=== PATIENT | male | born 1965 | race Caucasian/White ===

== ENCOUNTER 2019-02-26 07:08 | Emergency (ER) | payer OTHER ==
[~2019-02-26] VITALS: Ht 182.9 cm; Wt 90.7 kg
[2019-02-26] MEDS ORDERED: DICLOFENAC SODI75 MG PO (07:20)
[2019-02-26] MEDS ORDERED: LISINOPRIL20 MG PO (07:20)
[2019-02-26] MEDS ORDERED: PROZAC20 MG PO (07:21)
[2019-02-26] MEDS ORDERED: ZYRTEC10 MG PO (07:21)
[2019-02-26] MEDS ORDERED: VISTARIL25 MG PO (07:21)
[2019-02-26] MEDS ORDERED: HYDROXYZINE HCL50 MG PO (08:10)
--- NOTE | 2019-02-26 13:36 | EKG ---
[facility] [address] [facility] [place], [place] [address] Signed Sinus rhythm with 1st degree AV block Cannot rule out Anterior infarct , age undetermined Abnormal ECG No previous ECGs available Confirmed by DANITZA FAIRBANKS MD ([id number]) on 02/26/2019 1:36:36 PM Electronically Signed By: DANITZA FAIRBANKS MD 02/26/19 1336 PATIENT NAME: EVON VIEYRA Electrocardiogram DATE OF : 65 PHYSICIAN: DANITZA FAIRBANKS MD REPORT #: [id number] REPORT IS CONFIDENTIAL AND NOT TO BE RELEASED WITHOUT AUTHORIZATION
== END 2019-02-26 08:45 | disposition home or self-care (01) ==
LOC: ED 07:08
DX: F41.9 Anxiety disorder, unspecified (principal); F43.0 Acute stress reaction; Z79.899 Other long term (current) drug therapy
CPT/HCPCS: 71045; 80053; 83880; 84484; 85025; 93005; 93010; 96374; 99285-25; G0480; J2060

== ENCOUNTER 2025-04-18 15:32 | Emergency (ER) | payer OTHER ==
[~2025-04-18] VITALS: Ht 182.9 cm; Wt 92.0 kg
[~2025-04-18 15:32] MED LIST: DICLOFENAC SODI75 MG PO; HYDROXYZINE HCL50 MG PO; LISINOPRIL20 MG PO; PROZAC20 MG PO; VISTARIL25 MG PO; ZYRTEC10 MG PO
[2025-04-18] MEDS ORDERED: NEURONTIN100 MG PO (16:13)
[2025-04-18 16:17] LABS: BASOPHILS 0.3 % (0.2-1.2); EOSINOPHILS 0.4 % (0.8-7.0); LYMPHOCYTES 8.4 % (21.8-53.1); MCH 30.6 PG (25.7-32.2); MCHC 34.1 g/dL (32.3-36.5); MCV 89.7 fL (79.0-92.2); MONOCYTES 5.8 % (5.3-12.2); NEUTROPHILS 84.7 % (34.0-67.9); RBC 5.13 M/uL (4.63-6.08)
[2025-04-18 16:30] LABS: ALT (SGPT) 78.0 U/L (14-59); AST (SGOT) 46.0 U/L (15-37); GLOMERULAR FILTRATION RATE,EST 28.0 mL/min (>60); PROTEIN, TOTAL 8.9 g/dL (6.4-8.2); UREA NITROGEN 32.0 mg/dL (7-18)
[2025-04-18] MEDS ORDERED: SODIUM CHLORIDE 0.9% 1,000 ML IV PRN (16:45)
[2025-04-18 17:59] LABS: GLOMERULAR FILTRATION RATE,EST 33.0 mL/min (>60); UREA NITROGEN 31.0 mg/dL (7-18)
[2025-04-18] MEDS ORDERED: ASPIRIN 325 MG TAB PO ONE (18:15)
[2025-04-18 19:51] LABS: GLOMERULAR FILTRATION RATE,EST 37.0 mL/min (>60); UREA NITROGEN 34.0 mg/dL (7-18)
[2025-04-18 21:12] VITALS: BP 137/74
--- NOTE | 2025-04-19 11:44 | EKG ---
[facility] [address] [facility] [place] [address] Signed Normal sinus rhythm Low voltage QRS Borderline ECG When compared with ECG of 18-APR-2025 15:38, (Unconfirmed) 1st degree AV block is no longer present Confirmed by Fide Casillas MD ([id number]) on 04/19/2025 11:44:26 AM Electronically Signed By: FIDE CASILLAS MD 04/19/25 1144 PATIENT NAME: EVON VIEYRA Electrocardiogram DATE OF : 65 PHYSICIAN: FIDE CASILLAS MD REPORT #: [id number] REPORT IS CONFIDENTIAL AND NOT TO BE RELEASED WITHOUT AUTHORIZATION
--- NOTE | 2025-04-20 10:01 | EKG ---
[facility] [address] [facility] [place] [address] Signed Normal sinus rhythm Low voltage QRS Borderline ECG When compared with ECG of 18-APR-2025 15:39, No significant change was found Confirmed by Fide Casillas MD ([id number] on 04/20/2025 9:59:16 AM Electronically Signed By: FIDE CASILLAS MD 04/20/25 1001 PATIENT NAME: EVON VIEYRA Electrocardiogram DATE OF : 65 PHYSICIAN: FIDE CASILLAS MD REPORT #: [id number] REPORT IS CONFIDENTIAL AND NOT TO BE RELEASED WITHOUT AUTHORIZATION
== END 2025-04-18 21:16 | disposition home or self-care (01) ==
LOC: ED 15:32
PROVIDERS: Emergency Medicine
DX: T67.5XXA Heat exhaustion, unspecified, initial encounter (principal); N17.9 Acute kidney failure, unspecified; R79.89 Other specified abnormal findings of blood chemistry; I10 Essential (primary) hypertension; X32.XXXA Exposure to sunlight, initial encounter; Z79.899 Other long term (current) drug therapy; Z87.891 Personal history of nicotine dependence
CPT/HCPCS: 36415; 71045; 80048; 80053; 83735; 83880; 84484; 85025; 93005; 93010; 96360; 99285-25; J7030